=== PATIENT | male | born 1995 | race Caucasian/White ===

== ENCOUNTER 2018-11-12 09:05 | Emergency (ER) | payer SELFPAY ==
[2018-11-12] MEDS ORDERED: Acetaminophen 500 MG TAB ONE (09:31)
[2018-11-12] MEDS ORDERED: Lidocaine Viscous Sol 2% 15 ml UD Cup ONE (09:31)
[2018-11-12] MEDS ORDERED: Pantoprazole 40 MG VIAL ONE (09:31)
[2018-11-12] MEDS ORDERED: Mag-Al 1200 mg/1200 mg/30 ML UDCUP ONE (09:31)
[2018-11-12 09:58] LABS: #Basophils 0.1 thou/uL (0.0-0.2); #Eosinphils 0.1 thou/uL (0.0-0.7); #Lymphocytes 2.3 thou/uL (1.20-3.40); #Monocytes 0.6 thou/uL (0.11-0.59); #Neutrophils 4.9 thou/uL (1.40-6.50); %Basophils 0.8 % (0.0-1.0); %Eosinophils 1.3 % (0.0-10.0); %Lymphocytes 28.8 % (21.0-51.0); %Neutrophils 62.1 % (42.0-75.0); Hemoglobin 15.1 g/dL (14.0-18.0); Mean Corpuscular HGB CONC 32.9 g/dL (32.0-36.0); Mean Corpuscular Hemoglobin 29.6 pg (27.0-31.0); Mean Platelet Volume 9.4 fL (7.4-10.4); Platelet Count 249 thou/uL (130-400); RBC Distribution Width 11.6 % (11.5-14.5); Red Blood Cell (RBC) Count 5.12 mill/uL (4.70-6.10)
[2018-11-12 10:14] LABS: ALT (SGPT) 56 U/L (8-55); AST (SGOT) 28 U/L (5-34); Albumin 4.5 g/dL (3.5-5.0); Alkaline Phosphatase 55 U/L (40-150); Anion Gap 14 mmol/L (10-20); BUN (Urea Nitrogen) 6 mg/dL (8.9-20.6); Bilirubin, Total 0.2 mg/dL (0.2-1.2); CK (CPK) 89 U/L (30-200); Calc. Creatinine Clearance 0 mL/min (70-130); Calcium 9.5 mg/dL (7.8-10.44); Carbon Dioxide 25 mmol/L (22-29); Chloride 105 mmol/L (98-107); Estimated GFR-MDRD Greater than 90; Globulin 2.7 g/dL (2.4-3.5); Glucose 96 mg/dL (70-105); Lipase 17 U/L (8-78); Potassium 3.5 mmol/L (3.5-5.1); Protein, Total 7.2 g/dL (6.0-8.3); Sodium 140 mmol/L (136-145)
--- NOTE | 2018-11-12 10:15 | RAD ---
PORTABLE CHEST 1 VIEW: Date: 11/12/18 Time: 0822 hours HISTORY: Chest pain. FINDINGS: The heart size is normal. The lungs are expanded without focal areas of consolidation, pneumothoraces , or pleural effusions. IMPRESSION: No radiographic evidence of acute cardiopulmonary process. POS: [facility]
[2018-11-12 12:59] LABS: Troponin I Less than 0.010 ng/mL (< 0.028)
== END 2018-11-12 13:29 | disposition home or self-care (01) ==
LOC: ERS 09:05
DX: R07.89 Other chest pain (principal); F41.9 Anxiety disorder, unspecified; F17.210 Nicotine dependence, cigarettes, uncomplicated
CPT/HCPCS: 36415; 71045; 80053; 82550; 83690; 84484; 85025; 85379; 93005; 96361; 96374; C9113